=== PATIENT | female | born 2000 | race African-American/Black ===

== ENCOUNTER 2019-03-27 15:26 | Emergency (ER) | payer OTHER ==
[~2019-03-27] VITALS: Ht 170.2 cm; Wt 86.2 kg
[2019-03-27] MEDS ORDERED: ZYLOPRIM100 MG ORAL (15:29)
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
[2019-03-27] MEDS ORDERED: Hydrogen Peroxide 473ml Bottle TOPIC ONE (15:53)
[2019-03-27] MEDS ORDERED: Tetanus/Diptheria/Pertussis IM ONE (16:00)
[2019-03-27] MEDS ORDERED: Lidocaine 2% 20mg/ml/Epi 0.005mg/ml 20ml vial INJ ONE (16:00)
[2019-03-27] MEDS ORDERED: HYDROcodone/Acetamin 10/325 tab ORAL ONE (16:00)
[2019-03-27] MEDS ORDERED: Lidocaine 2% 20mg/ml/Epi 0.005mg/ml 20ml vial ONE (16:04)
[2019-03-27] MEDS ORDERED: Lidocaine 2% 20mg/ml/EPI 0.01mg/ml 20ml INJ ONE (16:15)
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
--- NOTE | 2019-03-27 18:33 | Emergency Room Report ---
History of Present Illness General Chief Complaint: Lower Extremity Injury Source: Patient Present Illness HPI 18-year-old female with history of bipolar disorder currently controlled brought in by the paramedics complaining of an open wound after a fall today in her right knee. Patient is rating the pain 10 out of 10 without radiation denying tingling and numbness. Has no motor or sensory deficit unable to extend and flex her knee with minimal pain. Patient has a deep open wound past the dermis with part of patella being visible on physical exam. After speaking with Dr. Cordova and sending a picture of wound it was decided to close in the ER and sent home with antibiotics. Patient denies fever chills, all other injuries, head injury, loss of consciousness. Denies chest pain, shortness of breath, palpitation, and other associated symptoms. Allergies: Coded Allergies: No Known Allergies (Unverified , 03/27/19) Patient History Past Medical History: see triage record Past Surgical History: unable to obtain Pertinent Family History: none Last Menstrual Period: last week Now: No Immunizations: other - Tdap given Reviewed Nursing Documentation: PMH: Agreed; PSxH: Agreed Nursing Documentation-PMH Past Medical History: No History, Except For History Of Psychiatric Problem: Yes - bipolar Review of Systems All Other Systems: negative except mentioned in HPI Physical Exam Vital Signs Date Time Temp Pulse Resp B/P (MAP) Pulse Ox O2 Delivery O2 Flow Rate FiO2 03/27/19 15:22 98.1 81 20 125/84 (98) 98 Room Air Sp02 EP Interpretation: reviewed, normal General Appearance: normal inspection, well appearing, no apparent distress, alert, GCS 15 Head: normocephalic, atraumatic Eyes: bilateral eye normal inspection, bilateral eye PERRL ENT: normal ENT inspection, hearing grossly normal, normal pharynx, no angioedema Neck: normal inspection, full range of motion, supple Respiratory: normal inspection, chest non-tender, lungs clear, normal breath sounds, no rhonchi, no respiratory distress, no wheezing Cardiovascular #1: normal inspection, normal peripheral pulses, regular rate, rhythm, no edema, no murmur, normal capillary refill Cardiovascular #2: 2+ dorsalis pedis (R), 2+ dorsalis pedis (L) Gastrointestinal: normal inspection, soft Rectal: deferred Genitourinary: no CVA tenderness Musculoskeletal: back normal, other - Open laceration of the right however intact Neurologic: normal inspection, alert, oriented x3, responsive Psychiatric: normal inspection, judgement/insight normal Skin: warm/dry, laceration - Keep laceration of right knee Lymphatic: normal inspection, no adenopathy Procedures Laceration/Wound Repair Laceration/Wound Repair : Consent: Verbal Wound Location: lower extremity Wound's Depth, Shape: into muscle Wound Explored: contaminated Betadine Prep?: Yes Anesthesia: Lidocaine w/ Epi Volume Anesthetic (ccs): 20 Wound Debrided: minimal Wound Repaired With: sutures Suture Size/Type: 3:0, nylon Number of Sutures: 23 Layer Closure?: Yes Sterile Dressing Applied?: Yes Splint Applied?: No Sling Applied?: No Patient Tolerated: Well Complications: None Medical Decision Making PA Attestation All my diagnosis and treatment plans were reviewed ad discussed with my supervising physician Dr. Crook Diagnostic Impression: Primary Impression: Laceration of right knee with complication ER Course 18-year-old female with history of bipolar disorder currently controlled brought in by the paramedics complaining of an open wound after a fall today in her right knee. Patient is rating the pain 10 out of 10 without radiation denying tingling and numbness. Has no motor or sensory deficit unable to extend and flex her knee with minimal pain. Patient has a deep open wound past the dermis with part of patella being visible on physical exam. After speaking with Dr. Cordova and sending a picture of wound it was decided to close in the ER and sent home with antibiotics. Patient denies fever chills, all other injuries, head injury, loss of consciousness. Denies chest pain, shortness of breath, palpitation, and other associated symptoms. Ddx considered but are not limited to : Superficial laceration, deep laceration , tendon involvement with laceration, laceration with foreign body Vital signs: are WNL, pt. is afebrile H&PE are most consistent with: Deep laceration of right knee with complication ORDERS: X-ray of right knee, Bronson, Tdap, Profen, Tylenol 3, Keflex ED INTERVENTIONS: Laceration repair DISCHARGE: At this time pt. is stable for d/c to home. Will provide printed patient care instructions, and any necessary prescriptions. Care plan and follow up instructions have been discussed with the patient prior to discharge. Other X-Ray Diagnostic Results Other X-Ray Diagnostic Results : X-Ray ordered: Right knee # of Views/Limited Vs Complete: 3 View Indication: Pain EP Interpretation: Yes NEVIN Xray: Interpretation reviewed, by supervising MD, and agrees with findings. Interpretation: no dislocation, no soft tissue swelling, no fractures, other - No foreign body noted Impression: No acute disease Electronically Signed by: Zia Keyes PA-C Last Vital Signs Date Time Temp Pulse Resp B/P (MAP) Pulse Ox O2 Delivery O2 Flow Rate FiO2 03/27/19 15:22 98.1 81 20 125/84 (98) 98 Room Air Disposition: HOME, SELF-CARE Condition: Stable Scripts Acetaminophen With Codeine (T#3) (TYLENOL #3 TAB*) Y Tab 1 TAB ORAL Q8HR PRN for For Pain for 3 Days, #10 TAB Prov: Zia Alfaro 03/27/19 Ibuprofen (Ibu) 800 Mg Tablet 800 MG PO TID, #30 TAB Prov: Zia Alfaro 03/27/19 Trimethoprim/Sulfamethoxazole 160/800* (BACTRIM DS TABLET*) 1 Each Tablet 1 TAB ORAL TWICE A DAY for 10 Days, #20 TAB 160/800 Prov: Zia Alfaro 03/27/19 Referrals: JV DUBON,REFERRING (PCP) Patient Instructions: Laceration Care, Adult, [id number] Additional Instructions: Take medication as directed follow-up with your primary care provider sutures to be removed in 10 days. If fever, chills, worsening symptoms return to the emergency room Zia Alfaro Mar 27, 2019 18:33
[2019-03-27] MEDS ORDERED: BACTRIM DS TAB1 EAC1 ORAL (18:36)
[2019-03-27] MEDS ORDERED: IBU800 MG PO (18:36)
[2019-03-27] MEDS ORDERED: ACETAMINOPHEN-1 EAC1 ORAL (18:36)
[2019-03-27 18:52] VITALS: BP 120/84
--- NOTE | 2019-03-27 18:52 | NUR ---
ED Nurse Note: pt cleared to be d/c per ER provider, pt discharge and aftercare instruction w/ prescription and wound care supply provided, pt advised to follow up with pcp or return to ed, education done via discussion and handout, pt verbalized understanding and agrees with plan, vss, ambulatory w/ steady gait, left w/ all belongings accompanied by mother. id band removed.
== END 2019-03-27 18:52 | disposition home or self-care (01) ==
LOC: EDBD 15:26 → EMR 15:47
DX: S81.011A Laceration without foreign body, right knee, initial encounter (principal); W19.XXXA Unspecified fall, initial encounter; Y92.9 Unspecified place or not applicable; Z23 Encounter for immunization
CPT/HCPCS: 12031; 73560; 90471; 90715; 99283; Z7502